=== PATIENT | male | born 1945 | race Caucasian/White ===

== ENCOUNTER 2017-05-07 04:23 | Emergency (ER) | payer MEDICARE, OTHER ==
[~2017-05-07] VITALS: Ht 190.5 cm; Wt 86.4 kg
--- NOTE | 2017-05-07 04:27 | ED.REPORT ---
HPI- Male Date of Service May 07, 2017 ED Provider: Dr. Leiva The pt is a 71 y/o male with a hx of BPH who presents to the ED complaining of urinary retention for the last 4 days. He was able to urinate a very small amount the first couple of days but has not urinated at all since yesterday. Nursing Notes Stated Complaint: UNABLE TO URINATE Nursing Notes Reviewed: Yes Allergies: Coded Allergies: erythromycin base (Verified Allergy, Severe, Swelling, 05/07/17) minocycline (Verified Adverse Reaction, Mild, nausea, 05/07/17) General Time Seen by MD: 04:26 Chief Complaint Unable to urinate Hx Obtained From: Patient Arrived By: Walk-in Onset Occurred: 4 days ago Symptom Duration: Since onset Severity: Current: No pain currently Severity: Maximum: No pain Recent Healthcare: No recent doctor visit Past Medical History Past Medical History BPH Past Surgical History none reported Smoking History Unknown if Ever Smoker Ambulatory Status Independent Review of Systems Male: Reports Urination decreased Complete sys rev & neg: except as marked. Physical Exam Initial Vital Signs Vital Signs (First) Date Time Temp Pulse Resp B/P Pulse Ox O2 Delivery O2 Flow Rate FiO2 05/07/17 04:28 36.4 63 18 169/78 97 Room Air Head / Eyes: Atraumatic, Normocephalic Neck: Supple, Non-tender, Full range of motion Respiratory: No respiratory distress Cardiovascular: Intact distal pulses Extremities: Vascular intact, Neuro intact, No swelling, No tenderness Skin: Warm, Dry, No cyanosis Neurologic: Alert, Oriented, Nonfocal General/Constitutional: Awake, Alert, Cooperative Appearance / Presentation: Positive: Uncomfortable Abdomen: Atraumatic, Soft, Non-tender, No guarding, No rebound Bowel Sounds / Distention: Positive: Distention mild Interpretation & Diagnostics Lab Results Interpretation Result Diagram: 05/07/17 0520 05/07/17 0511 Test 05/07/17 04:45 05/07/17 05:11 05/07/17 05:20 Urine Color Yellow (YELLOW) Urine Appearance Clear (CLEAR,HAZY) Urine pH 6.0 (5.0-8.0) Urine Specific [place] 1.015 (1.003-1.035) Urine Protein Negativemg/dL (NEG,TRACE) Urine Glucose (UA) Negativemg/dL (NEGATIVE) Urine Ketones Negativemg/dL (NEGATIVE) Urine Occult Blood Negative (NEGATIVE) Urine Nitrite Negative (NEGATIVE) Urine Bilirubin Negative (NEGATIVE) Urine Urobilinogen Normalmg/dL (NORMAL) Urine Leukocyte Esterase Negative (NEGATIVE) Urine RBC 0-2/hpf (0-2) Urine WBC 0-5/hpf (0-5) Urine Epithelial Cells Occasional/hpf (NONE-MOD) Urine Crystals None seen (NONE SEEN) Urine Bacteria Few/hpf (NONE-FEW) Urine Hyaline Casts None/lpf (NONE) Urine Granular Casts None seen (NONE SEEN) Urine Waxy Casts None seen (NONE SEEN) Urine Red Blood Cell Casts None seen (NONE SEEN) Urine White Blood Cell Casts None seen (NONE SEEN) Urine Mucus Present (None Seen) Urine Trichomonas None seen (NONE SEEN) Urine Yeast None (NONE SEEN) Urinalysis Comment None Urine Culture Reflexed Not indicated Sodium Level 133mEq/L (134-144) Potassium Level 3.7mEq/L (3.5-5.2) Chloride Level 95mEq/L (97-108) Carbon Dioxide Level 21mmol/L (18-29) Blood Urea Nitrogen 15mg/dL (8-27) Creatinine 0.62mg/dL (0.76-1.27) Estimat Glomerular Filtration Rate 135mL/min (>59) Glucose Level 113mg/dL (60-99) Calcium Level 9.0mg/dL (8.5-10.1) Total Bilirubin 0.5mg/dL (0.0-1.2) Aspartate Amino Transf (AST/SGOT) 49U/L (0-50) Alanine Aminotransferase (ALT/SGPT) 31U/L (0-44) Alkaline Phosphatase 63U/L (25-160) Total Protein 7.1g/dL (6.4-8.4) Albumin 4.2g/dL (3.4-5.0) White Blood Count 6.6th/mm3 (3.8-10.1) Red Blood Count 4.67mil/mm3 (4.40-5.80) Hemoglobin 13.5g/dL (13.8-17.2) Hematocrit 39.0% (41.0-50.0) Mean Corpuscular Volume 83.5fL (81-100) Mean Corpuscular Hemoglobin 28.9pg (27.0-35.0) Mean Corpuscular Hemoglobin Concent 34.6% (32.0-37.0) Red Cell Distribution Width 13.9% (12.3-15.4) Platelet Count 219bil/L (150-400) Neutrophils (%) (Auto) 70.0% (40-74) Lymphocytes (%) (Auto) 15.7% (14-46) Monocytes (%) (Auto) 13.6% (4-12) Eosinophils (%) (Auto) 0.2% (0-5) Basophils (%) (Auto) 0.3% (0-3) Procedures Brewer Catheter Time: 04:43 Procedure Performed by: Allied health pract (nurse) Consent / Setup / Site Prep: Consent from patient, Hand hygiene observed, Stand sterile technique, Standard Brewer site prep Brewer Insertion: Urethra Catheter Type: Brewer Initial Amount Urine Obtained: 900cc Insertion / Complications: Insertion successful, No complications Re-Eval/Medical Decision Med Decision/Clinical Course 71-year-old recent diagnosis of benign prostatic hypertrophy presents in complete urinary retention. Relieved with a Brewer here was a out. Urinalysis is negative. Creatinine is normal. No evidence of hydronephrotic renal damage this point. Discharge with Brewer in place for follow-up with urology. Re-Evaluation/Progress : Time of Eval: 05:09 Patient Status: Condition improved Re-Evaluation/Progress Note: Rechecked pt. Discussed imaging results, diagnosis and plan to discharge. Pt understands and agrees with the plan. F/U instruction and RTER warning given. All questions addressed. Counseled Regarding: Diagnosis, Lab results, Need for follow-up, When/why to return to ED Discharge & Departure Impression: Primary Impression: Acute urinary retention Additional Impression: Benign prostatic hypertrophy Prostatic enlargement morphology: unspecified morphology Lower urinary tract symptom presence: presence of symptoms unspecified Qualified Code: N40.0 - Benign prostatic hyperplasia without lower urinary tract symptoms Disposition: Home Discharge Condition All VS Reviewed: Yes Condition: Stable Patient Instructions: Brewer Catheter Placement and Care (ED), Urinary Retention in Men (ED) Additional Instructions: Call your urologist on Monday for follow-up. Leave the your Brewer catheter in place. Use a large bag tonight and a leg bag by day. Return for any immediate issues over the weekend. Scribe Attestation Portions of this note were transcribed by Shane Mike. I,, personally performed the history,physical exam and medical decision-making;I reviewed and confirmed the accuracy of the information in the transcribed note. Signed by Alida Navarrete. 05/07/17 Lucho Leiva MD May 07, 2017 04:27 Shane Mike May 07, 2017 04:29
[2017-05-07 04:28] VITALS: BP 169/78; PULSE 63; RESP 18; O2SAT 97
[2017-05-07 04:57] LABS: APPEARANCE,URINE CLEAR (CLEAR,HAZY); COLOR,URINE YELLOW (YELLOW); OCCULT BLOOD,URINE NEGATIVE (NEGATIVE); UROBILINOGEN,URINE NORMAL (NORMAL)
[2017-05-07 05:36] LABS: BASOPHILS % (AUTO) 0.3 % (0-3); EOSINOPHILS % (AUTO) 0.2 % (0-5); MONOCYTES % (AUTO) 13.6 % (4-12); Mean Corpuscular Hemoglobin 28.9 pg (27.0-35.0); Mean Corpuscular Volume 83.5 fL (81-100); Platelet Count 219 bil/L (150-400)
[2017-05-07 05:49] VITALS: BP 135/65; PULSE 67; RESP 18; O2SAT 93
== END 2017-05-07 05:34 | disposition home or self-care (01) ==
LOC: SED 04:23
DX: N40.1 Benign prostatic hyperplasia with lower urinary tract symptoms (principal); R33.8 Other retention of urine; Z88.1 Allergy status to other antibiotic agents

== ENCOUNTER 2017-05-16 19:22 | Emergency (ER) | payer MEDICARE, OTHER ==
[~2017-05-16] VITALS: Ht 190.5 cm; Wt 84.1 kg
[2017-05-16 19:34] VITALS: BP 155/85; PULSE 62; RESP 16; O2SAT 99
--- NOTE | 2017-05-16 21:23 | ED.REPORT ---
HPI-General Illness Date of Service May 16, 2017 ED Provider: Ranjit Wyman MD The patient is a 71 year old male with a history of BPH who presents to the ED with urinary retention that initially began one month ago but returned this afternoon. He has been followed by a urologist at [facility] but a clear cause of his persistent urinary retention has not been identified. The patient was seen in the ED on 05/07 for identical symptoms and was discharged with a Brewer catheter and leg bag. His Brewer catheter was removed this morning by his urologist and he has not been able to void since. Patient has been taking Flomax for the past 6 days. He denies fever, chills, nausea, vomiting, dysuria, hematuria, abdominal pain or distention.. Nursing Notes Stated Complaint: CATHETER REMOVED NOW CAN NOT URINATE Chief Complaint: Male Abdominal Pain Nursing Notes Reviewed: Yes Allergies: Coded Allergies: erythromycin base (Verified Allergy, Severe, Swelling, 05/16/17) minocycline (Verified Adverse Reaction, Mild, nausea, 05/16/17) General Time Seen by MD: 21:07 Chief Complaint Other (Urinary Retention) Hx Obtained From: Patient Arrived By: Walk-in Sudden in Onset?: No Onset Occurred: 5 - 8 hours ago Symptom Duration: Since onset Associated with: Denies: Abdominal pain, Fever, Nausea, Vomiting Pertinent Negative: Pt denies other symptoms Recent Healthcare: No recent hospitalization, Recent doctor visit Similar Sx Previous: Yes Past Medical History Past Medical History BPH Past Surgical History None reported Smoking History Unknown if Ever Smoker Social History Other Social History: Good social support, Local resident Ambulatory Status Independent Review of Systems Denies abd distention Full Review of Systems Constitutional: Denies: Chills, Fever GI: Denies: Abdominal pain, Nausea, Vomiting Male: Reports Urination decreased, Denies Dysuria, Denies Hematuria Complete sys rev & neg: except as marked. Physical Exam Vital Signs Vital Signs Date Time Temp Pulse Resp B/P Pulse Ox O2 Delivery O2 Flow Rate FiO2 05/16/17 22:28 36.9 66 16 142/80 99 Room Air 05/16/17 19:34 36.6 62 16 155/85 99 Room Air Initial VS: Reviewed Head / Eyes: Atraumatic, Normocephalic, PERRL Neck: Supple, Non-tender, Full range of motion Extremities: Vascular intact, Neuro intact, No swelling, No tenderness Skin: Warm, Dry, No cyanosis Neurologic: Alert, Oriented, Nonfocal Psychiatric: Mood/affect normal, Behavior normal, Normal thought content General/Constitutional: Awake, Alert, No acute distress, Well appearing, Well developed Respiratory / Chest: Atraumatic, Breath sounds NL, Breath sounds = bilat, No respiratory distress Cardiovascular: Heart rate NL, Regular rhythm, Heart sounds NL, No gallop, No murmurs, No rubs Abdomen: Atraumatic, Soft, Non-tender, No distention ABDOMEN: Brewer cath in place with 1.5 L of clear urine No blood present in the urine Re-Eval/Medical Decision Med Decision/Clinical Course In summary, the patient is a 71-year-old male with a history of BPH who was recently seen in this emergency department due to urinary retention at which time a Brewer catheter was placed. He was started on Flomax and his Brewer was removed this morning and his urologist's office. He has been unable to void urine ever since. Here in the emergency department a Brewer catheter was placed and 1400 mL of clear yellow urine was drained. He reported feeling dramatically better. He has no fevers, chills, abdominal pain, flank pain or systemic symptoms suggestive of urinary tract infection. Abdominal examination is reassuring. Discussed with the patient management options including urinalysis/laboratory studies versus discharge to follow-up with his urologist. He will prefer the latter as he states that he feels completely better now after placement of Brewer catheter. I feel that this is reasonable. He was given strict return precautions to come back for any signs of urinary tract infection such as fevers, nausea, fatigue, abdominal pain or flank pain. He will continue to take Flomax and call his urologist tomorrow morning for an appointment. Prior to discharge follow-up and return precautions were reviewed in detail with the patient who verbalized understanding and agreement with the plan. The patient was discharged in stable condition. Time of Eval: 22:06 Patient Status: Condition improved Re-Evaluation/Progress Note: Patient condition is re-evaluated. He is informed of his current diagnosis and plan. Brewer catheter is placed. All questions about the intended treatment plan are addressed. Patient understands and agrees with the plan. Counseled Regarding: Diagnosis, Need for follow-up, When/why to return to ED Discharge & Departure Primary Impression: Acute urinary retention Additional Impression: BPH (benign prostatic hyperplasia) Prostatic enlargement morphology: unspecified morphology Lower urinary tract symptom presence: symptoms present Qualified Code: N40.1 - Benign prostatic hyperplasia with lower urinary tract symptoms Disposition: Home Discharge Condition All VS Reviewed: Yes Condition: Improved Patient Instructions: Urinary Retention in Men (ED), Urinary Retention in Men ( GEN) Additional Instructions: Thank you for seeking care at emergency room. It is difficult for us to make definitive diagnoses in the ED but we believe that you are experiencing urinary retention. Our primary goal today in the ED was to evaluate you for any life-threatening conditions. Your evaluation was reassuring. A catheter does present opportunity for infection. Make sure to look for evidence of infection. (redness, swelling, fever, chills) You should follow-up with your primary doctor and urologist in the next week. You should return to the ED immediately if you develop recurrent urinary retention, pain, blood in your urine, fevers, chills, lightheadedness, weakness or any other concerning signs or symptoms. Thank you for letting us partake in your care today. Referrals: [facility] (PCP) Carie Cox MD, Mansel K MD Scribe Attestation Portions of this note were transcribed by Juan Mattson. I, Dr. Wyman, personally performed the history, physical exam and medical decision-making; I reviewed and confirmed the accuracy of the information in the transcribed note. Signed by: Juan Mattson, 05/16/17. Ranjit Wyman MD May 16, 2017 21:23 JUAN MATTSON May 16, 2017 22:08
[2017-05-16 22:28] VITALS: BP 142/80; PULSE 66; RESP 16; O2SAT 99
== END 2017-05-16 22:28 | disposition home or self-care (01) ==
LOC: SED 19:22
DX: N40.1 Benign prostatic hyperplasia with lower urinary tract symptoms (principal); R33.8 Other retention of urine; Z88.1 Allergy status to other antibiotic agents